=== PATIENT | female | born 1955 | race Two or more races ===

== ENCOUNTER → 2018-04-07 | Day surgery (SDC) | payer OTHER ==
--- NOTE | 2018-04-07 10:38 | OP ---
DATE OF OPERATION: 04/07/2018 PREOPERATIVE DIAGNOSIS: Right mammography. POSTOPERATIVE DIAGNOSIS: Right mammography. PROCEDURE: Right stereotactic needle biopsy with clips. SURGEON: Thea Jhaveri MD ANESTHESIA: Local. COMPLICATIONS: None. DISPOSITION: Stable at the end of the procedure. INDICATION FOR PROCEDURE: Patient presented for screening mammography that noted cluster microcalcifications in the central, slightly lower right breast. My recommendation was for a needle biopsy. The procedure was discussed with all of her questions answered. PROCEDURE IN DETAIL: Patient was brought to [facility] in [place], laid prone on the Lorad table. Using the caudal approach, the calcification in the inferior central right breast were identified, and a sterile prep was obtained. A target was chosen. There was a positive stroke margin. Using Betadine and 1% lidocaine, a 10-gauge Suros device was used to take several cores from this area. Cores showed calcification within them. These were handled using classification protocol. A clip was deployed in the area. Hemostasis was controlled with direct pressure. The incision was closed with Steri-Strips. She tolerated the procedure well and left the breast imaging center in good condition. THEA JHAVERI M.D. JOSE [id number]
--- NOTE | 2018-04-09 15:43 | PATH ---
Surgical Pathology Report Patient Name: DWIGHT IRWIN [facility]. Rec. #: [id number] /Age/Gender: 1955 (Age: 62) / F Account: [id number] Location: [facility] [place] Taken: 04/07/2018 Received: 04/07/2018 Reported: 04/09/2018 Physicians: Thea Gunderson M.D. Specimen(s) Received A: RIGHT BREAST SPECIMEN WITH CALCIFICATIONS B: RIGHT BREAST SPECIMEN WITHOUT CALCIFICATIONS Clinical History Nonpalpable lesion Mammographic findings: suspicious microcalcification Final Diagnosis A. BREAST, RIGHT, WITH CALCIFICATIONS, STEREOTACTIC BIOPSY: DUCTAL CARCINOMA IN SITU (DCIS), SOLID TYPE, HIGH NUCLEAR GRADE WITH EXTENSIVE NECROSIS AND ASSOCIATED CALCIFICATIONS. B. BREAST, RIGHT, WITHOUT CALCIFICATIONS, STEREOTACTIC BIOPSY: DUCTAL CARCINOMA IN SITU (DCIS), SOLID AND MICROPAPILLARY TYPE, HIGH NUCLEAR GRADE. Comment: Results of ER and AR studies will be reported separately in an addendum. Case discussed with Dr. Gunderson on 04/09/18. Electronically Signed Kaci Wood M.D. Addendum Reported: 04/13/2018 Addendum Diagnosis Results of ER and AR studies performed on block A at [facility] are as follows: ER (clone [id number] mouse monoclonal antibody by Leica): > 95 % nuclear staining with strong intensity (Positive). AR (clone16 mouse monoclonal antibody by Leica): > 95 % nuclear staining with strong intensity (Positive). Positive and negative controls (internal if applicable) show appropriate results. Formalin fixation and cold ischemic times are within current ASCO/CAP recommendations for ER, AR and Her2 testing. Kaci Wood M.D. Gross Description A. Received in formalin labeled "right breast with calcifications," are 7 greene-yellow, cylindrical portions of fibroadipose tissue ranging from 0.3-1.6 cm in length and averaging 0.3 cm in diameter. The specimens are submitted in toto in one cassette. B. Received in formalin labeled "right breast without calcifications," is a 2.0 x 1.5 x 0.3 cm aggregate of multiple greene-yellow, irregular to cylindrical portions of fibroadipose tissue. The formalin is filtered and the specimen is entirely submitted in one cassette. Time to formalin fixation: 5 minutes Total formalin fixation time: Approximately 8 hours. 04/08/2018 david04/08/2018
== END | disposition home or self-care (01) ==
LOC: FMAMMOTONE 09:15
PROVIDERS: ATTEND Surgery
PROC: 0HBT3ZX Excision of Right Breast, Percutaneous Approach, Diagnostic (ICD-10-PCS; principal; 2018-04-07)
DX: D05.91 Unspecified type of carcinoma in situ of right breast (principal); R92.1 Mammographic calcification found on diagnostic imaging of breast
CPT/HCPCS: 19081; 87899; 88305-TC; A4648

== ENCOUNTER 2018-04-30 07:18 | Day surgery (SDC) | payer OTHER ==
[2018-04-29 18:41] VITALS: BMI 25.4
[2018-04-30] MEDS ORDERED: oxyCODONE HCL 5 MG TABLET PO PRN ×2 (10:14)
[2018-04-30] MEDS ORDERED: LACTATED RINGERS SOLUTION 1,000 ML IV SCH (10:15)
[2018-04-30] MEDS ORDERED: LIDOCAINE HCL 2% (20ML MULTI-DOSE VIAL) NR ONE (10:15)
[2018-04-30] MEDS ORDERED: PROPOFOL 20 ML ONE ×3 (10:21→10:37)
[2018-04-30] MEDS ORDERED: LIDOCAINE HCL 2% (50ML VIAL) INF ONE (10:30)
[2018-04-30] MEDS ORDERED: ceFAZolin SODIUM 1 GM VIAL ONE (10:47)
[2018-04-30] MEDS ORDERED: oxyCODONE HCL 5 MG TABLET PO ONE (12:46)
[2018-04-30] MEDS ORDERED: oxyCODONE HCL 5 MG TABLET ONE (12:48)
[2018-04-30 13:54] VITALS: BP 129/78; PULSE 72; TEMP 97.9
[2018-04-30] MEDS ORDERED: ATORVASTATIN CA 20 MG TABLET (FP) PO SCH (22:00)
[2018-04-30] MEDS ORDERED: GABAPENTIN 300 MG CAPSULE (FP) PO SCH (22:00)
[2018-05-01] MEDS ORDERED: CALCIUM CARBONATE PO SCH (10:00)
[2018-05-01] MEDS ORDERED: VITAMIN D3 PO SCH (10:00)
[2018-05-01] MEDS ORDERED: LISINOPRIL 20 MG TABLET (FP) PO SCH (10:00)
[2018-05-01] MEDS ORDERED: [UNRECOGNIZED DRUG - OTHER] PO SCH (10:00)
[2018-05-01] MEDS ORDERED: amLODIPine BESYLATE 5 MG TABLET (FP) PO SCH (10:00)
--- NOTE | 2018-05-01 10:12 | OP ---
DATE OF OPERATION: 04/30/2018 PREOPERATIVE DIAGNOSIS: Right breast ductal carcinoma in situ. POSTOPERATIVE DIAGNOSIS: Right breast ductal carcinoma in situ. PROCEDURE: Right breast wire localized lumpectomy. SURGEON: Thea Jhaveri MD ANESTHESIA: Local with IV sedation. ESTIMATED BLOOD LOSS: Minimal. COMPLICATIONS: None. This was a sterile procedure. INDICATION FOR PROCEDURE: Patient had a mammogram that noted calcifications in the lower inner right breast, and a stereotactic needle biopsy showed DCIS. My recommendation was a lumpectomy. The procedure was discussed with all of her questions answered. PROCEDURE IN DETAIL: Patient was brought to [facility] in [place], taken down to breast imaging where a wire was used to localize a clip in the lower inner right breast. She was then brought to the operating room, and after IV sedation and IV antibiotics, the right breast was prepped and draped in the usual sterile fashion. The area in the lower inner right breast was anesthetized with 2% lidocaine without epinephrine. A radial incision was made in the right 5 o'clock location. A wire was used as a guide to get down to the area. This was excised en bloc, tagged with a long stitch lateral, short stitch superior. felt that was close superior. Therefore, I took a new superior margin with a stitch at the old margin. The lumpectomy was sent for specimen radiograph which showed the clip and wire to be intact on the specimen. This was then sent to pathology for permanent section. Hemostasis was assured with electrocautery. The parenchyma were approximated with interrupted 2-0 Vicryl, skin approximated with interrupted 3-0 Vicryl and a running 4-0 Prolene. A sterile dressing with Tegaderm and 4 x 4's applied. She tolerated the procedure well, was taken to recovery in good condition. THEA JHAVERI M.D. JOSE [id number]
--- NOTE | 2018-05-04 11:23 | PATH ---
Surgical Pathology Report Patient Name: DWIGHT IRWIN [facility] Rec. #: [id number] /Age/Gender: 1955 (Age: 62) / F Account: [id number] Location: [facility] SURGICAL Taken: 04/30/2018 Received: 04/30/2018 Reported: 05/04/2018 Physicians: Thea Gunderson M.D. Specimen(s) Received A: RIGHT BREAST MASS B: RIGHT BREAST NEW SUPERIOR MARGIN Clinical History DCIS, right breast Final Diagnosis A. BREAST, RIGHT, EXCISION: DUCTAL CARCINOMA IN SITU (DCIS), SOLID AND FOCAL MICROPAPILLARY TYPES, HIGH NUCLEAR GRADE, WITH CENTRAL NECROSIS, PRESENT IN THREE OF FOURTEEN SLIDES (3/14). DCIS MEASURES 4 MM IN GREATEST DIMENSION, MICROSCOPICALLY. DCIS IS 1 MM FROM CLOSEST SUPERIOR MARGIN; ALL OTHER MARGINS ARE WIDELY FREE. SEE SPECIMEN B FOR FINAL SUPERIOR MARGIN. PRIOR BIOPSY SITE CHANGES ARE PRESENT. REMAINDER OF BREAST TISSUE SHOW FOCAL ATYPICAL DUCTAL HYPERPLASIA AND PROLIFERATIVE FIBROCYSTIC CHANGES WITH ASSOCIATED MICROCALCIFICATIONS. PATHOLOGIC STAGE (pTNM): pTis pNx. SEE CASE SUMMARY BELOW. B. BREAST, RIGHT, NEW SUPERIOR MARGIN, EXCISION: BENIGN BREAST TISSUE. Comments DCIS of the Breast: Surgical Pathology Cancer Case Summary (Based on AJCC TNM 8 th edition) Procedure _X_ Excision (less than total mastectomy) Specimen Laterality _X_ Right Size (Extent) of DCIS Estimated size (extent) of DCIS: at least (millimeters) _4_ mm Number of blocks with DCIS: _3_ Number of blocks examined: _14_ Histologic Type _X__ Ductal carcinoma in situ Architectural Patterns _X_ Micropapillary _X_ Solid Nuclear Grade _X_ Grade III (high) Necrosis _X_ Present, central (expansive "comedo" necrosis) Margins _X_ Uninvolved by DCIS Distance from closest margin (millimeters):1 mm in wide excision, negative in final superior margin. Specify closest margin: Superior Regional Lymph Nodes _X_ No lymph nodes submitted or found Pathologic Stage Classification (pTNM, AJCC 8th Edition) Primary Tumor (pT) _X_ pTis (DCIS): Ductal carcinoma in situ Category (pN) _X_ pNx: Regional lymph nodes cannot be assessed Microcalcifications _X__ Present in nonneoplastic tissue Biomarker Studies Results of ER and NC studies performed on prior biopsy ([id number]) are as follows: ER (clone [id number] mouse monoclonal antibody by Leica): >95% nuclear staining with strong intensity (Positive). NC (clone16 mouse monoclonal antibody by Leica): >95% nuclear staining with strong intensity (Positive). Electronically Signed Chana Zabala M.D. Gross Description A. Received fresh on an AccuGrid, labeled "right breast lump" is a 21 g, 6 x 4 x 2 cm. greene-yellow, irregular, portion of fibroadipose tissue with a needle localization wire present. There is a short suture marking the superior aspect and a long suture marking the lateral aspect, per the surgeon. There is no skin or nipple present. The specimen is inked as follows: superior and lateral blue; inferior -green; medial- yellow; anterior -red; deep- black. The specimen is serially sectioned. Sectioning reveals a 1.3 x 1.2 x 1 cm, pink-greene, indurated mass focally abutting the lateral and superior margins. The mass is grossly 0.5 cm from medial margin and 0.7 cm from anterior margin. Entire specimen is submitted in 14 cassettes as follows: 1- full face section of mass each (with superior and lateral margins); 2-3 full face section of mass, each, 4-5: Bisected lesion, clip. Total formalin fixation time: Approximately 8-9 hours B. Received in formalin labeled "right breast, new superior margin," is a 3 x 2 x 1 cm portion of fibroadipose tissue with a suture marking old margin, per surgeon. The new margin is inked blue and the specimen is serially sectioned. Cut section is unremarkable. The specimen is entirely and sequentially submitted in 2 cassettes. MLSZ/04/30/2018 sanml/04/30/2018
== END 2018-04-30 13:50 | disposition home or self-care (01) ==
LOC: JASU-SURG 07:18
PROVIDERS: ATTEND Surgery
PROC: 0HBT0ZZ Excision of Right Breast, Open Approach (ICD-10-PCS; principal; 2018-04-30 09:30)
DX: D05.11 Intraductal carcinoma in situ of right breast (principal)
CPT/HCPCS: 19281; 82962; 88307-TC; 94760

== ENCOUNTER 2018-06-11 08:00 | Day surgery (SDC) | payer OTHER ==
[2018-06-10 12:23] VITALS: BMI 25.2
[2018-06-11] MEDS ORDERED: ONDANSETRON 4 MG/2 ML VIAL IVPUSH PRN (09:02)
[2018-06-11] MEDS ORDERED: PROPOFOL 20 ML ONE ×2 (09:14→10:11)
[2018-06-11] MEDS ORDERED: MIDAZOLAM HCL 2 MG/2 ML SINGLE DOSE VIAL ONE (09:14)
[2018-06-11] MEDS ORDERED: DEXAMETHASONE SOD PHOSPHATE 4 MG/1 ML VIAL ONE ×2 (09:14→10:07)
[2018-06-11] MEDS ORDERED: LACTATED RINGERS SOLUTION 1,000 ML IV SCH (09:15)
[2018-06-11] MEDS ORDERED: LIDOCAINE HCL/PF 2% SDV 5ML VIAL ONE (09:20)
[2018-06-11] MEDS ORDERED: SODIUM CHLORIDE 0.9% P/F 10 ML VIAL IJ ONE (09:58)
[2018-06-11] MEDS ORDERED: ceFAZolin SODIUM 1 GM VIAL ONE (09:58)
[2018-06-11] MEDS ORDERED: KETOROLAC TROMETHAMINE 30 MG/1 ML VIAL ONE (10:05)
[2018-06-11] MEDS ORDERED: LIDOCAINE HCL 1%, 10 MG/ML (20ML VIAL) INF ONE (10:06)
--- NOTE | 2018-06-11 10:51 | OP ---
DATE OF OPERATION: 06/11/2018 PREOPERATIVE DIAGNOSIS: Right breast ductal carcinoma in situ. POSTOPERATIVE DIAGNOSIS: Right breast ductal carcinoma in situ. PROCEDURE: Right breast reexcision lumpectomy. SURGEON: Thea Gunderson MD ANESTHESIA: Local, IV sedation. ESTIMATED BLOOD LOSS: Minimal. COMPLICATIONS: None. This was a sterile procedure. INDICATION FOR PROCEDURE: Patient had a right lumpectomy with DCIS that showed a close superior margin. My recommendation was reexcision. The procedure was discussed with all her questions answered. PROCEDURE IN DETAIL: Patient brought to [facility] in [place]. Was taken into the operating room and after IV sedation, IV antibiotics the right breast was prepped and draped in the usual sterile fashion. The area on the inferior right breast was anesthetized with 1% lidocaine without epinephrine. The prior incision was sharpy reopened and a new superior margin was taken that was basically tissue behind the right nipple-areolar complex. This was tagged with a stitch at the new margin and sent to Pathology for permanent section. Hemostasis was assured with electrocautery. The seroma cavity was noted. This was down to the pectoralis muscle. Once the lumpectomy was performed then the parenchyma approximated with interrupted 2-0 Vicryl. Skin approximated with interrupted 3-0 Vicryl and running 4-0 Prolene. A sterile dressing with Tegaderm, 4 x 4's applied. She tolerated procedure well. Was taken to recovery in good condition. Blaise [id number]
[2018-06-11 12:29] VITALS: TEMP 97.7
[2018-06-11 18:03] VITALS: BP 112/69; PULSE 85
--- NOTE | 2018-06-15 14:41 | PATH ---
Surgical Pathology Report Patient Name: DWIGHT IRWIN [facility]. Rec. #: [id number] /Age/Gender: 1955 (Age: 62) / F Account: [id number] Location: [facility] SURGICAL Taken: 06/11/2018 Received: 06/11/2018 Reported: 06/15/2018 Physicians: Thea Gunderson M.D. Specimen(s) Received RIGHT BREAST NEW SUPERIOR MARIGN Clinical History Right breast ductal carcinoma Final Diagnosis BREAST, RIGHT, NEW SUPERIOR MARGIN, EXCISION: BENIGN BREAST TISSUE WITH CHANGES OF PRIOR BIOPSY. Electronically Signed Chana Zabala M.D. Gross Description Received in formalin labeled "right breast new superior margin," is a 2.7 x 2.5 x 1.8 cm portion of fibroadipose tissue with a suture marking the new margin, per the surgeon. The new margin is inked green and the specimen is serially sectioned. The specimen is entirely and sequentially submitted in 5 cassettes. /06/11/2018 saudi06/11/2018
== END 2018-06-11 16:15 | disposition home or self-care (01) ==
LOC: JASU-SURG 08:00
PROVIDERS: ATTEND Surgery
PROC: 0HBT0ZZ Excision of Right Breast, Open Approach (ICD-10-PCS; principal; 2018-06-11 09:00)
DX: D05.11 Intraductal carcinoma in situ of right breast (principal)
CPT/HCPCS: 82962; 88307-TC; 94760

== ENCOUNTER 2021-07-17 05:24 | Day surgery (SDC) | payer OTHER ==
[2021-07-16 15:26] VITALS: BMI 26.2
[2021-07-17] MEDS ORDERED: ONDANSETRON 4 MG/2 ML VIAL IVPUSH PRN (11:35)
[2021-07-17] MEDS ORDERED: LACTATED RINGERS SOLUTION 1,000 ML IV SCH (11:45)
[2021-07-17] MEDS ORDERED: PROPOFOL 20 ML ONE ×3 (12:09→14:09)
[2021-07-17] MEDS ORDERED: ceFAZolin SODIUM 1 GM VIAL IVPB ONE (12:15)
[2021-07-17] MEDS ORDERED: LIDOCAINE 1%/EPI 1:100000 (20 ML MULTI DOSE VIAL) ONE (12:35)
[2021-07-17] MEDS ORDERED: LIDOCAINE 1%/EPI 1:100000 (20 ML MULTI DOSE VIAL) IJ ONE (12:41)
[2021-07-17] MEDS ORDERED: BACITRACIN 15 GM TUBE TOPICAL OINTMENT TP ONE (13:46)
[2021-07-17] MEDS ORDERED: ACETAMINOPHEN 325 MG TABLET (FP) PO PRN (14:53)
[2021-07-17] MEDS ORDERED: oxyCODONE HCL 5 MG TABLET PO PRN (16:50)
[2021-07-17] MEDS ORDERED: oxyCODONE HCL 5 MG TABLET ONE (17:07)
[2021-07-17] MEDS ORDERED: ONDANSETRON 4 MG/2 ML VIAL ONE (17:10)
[2021-07-17 19:35] VITALS: BP 105/65; PULSE 74; TEMP 98
== END 2021-07-17 19:35 | disposition home or self-care (01) ==
LOC: JASU-SURG 05:24
PROVIDERS: ATTEND Urology
PROC: 0UQF0ZZ Repair Cul-de-sac, Open Approach (ICD-10-PCS; 2021-07-17)
PROC: 0JQC0ZZ Repair Pelvic Region Subcutaneous Tissue and Fascia, Open Approach (ICD-10-PCS; principal; 2021-07-17 10:30)
PROC: 0JUC0JZ Supplement of Pelvic Region Subcutaneous Tissue and Fascia with Synthetic Substitute, Open Approach (ICD-10-PCS; 2021-07-17 10:30)
PROC: 0TJB8ZZ Inspection of Bladder, Via Natural or Artificial Opening Endoscopic (ICD-10-PCS; 2021-07-17 10:30)
DX: N39.3 Stress incontinence (female) (male) (principal); N81.11 Cystocele, midline; N81.6 Rectocele; N95.2 Postmenopausal atrophic vaginitis; I10 Essential (primary) hypertension; E11.9 Type 2 diabetes mellitus without complications
CPT/HCPCS: 57240; 57288; C2631; 82962; 87086; 88304-TC; 93005; 93010; 94760